=== PATIENT | male | born 1935 | race Caucasian/White ===

== ENCOUNTER 2021-02-25 18:47 | Emergency (ER) | payer MEDICARE ==
[~2021-02-25] VITALS: Ht 180.3 cm; Wt 89.2 kg
--- NOTE | 2021-02-25 19:27 | NUR ---
ERP AT BEDSIDE FOR EVAL AND BLADDER SCAN AT THIS TIME
[2021-02-25 19:53] LABS: BASOPHILS % (AUTO) 1 % (0-1); EOSINOPHILS % (AUTO) 2 % (1-7); LYMPHOCYTES % (AUTO) 8 % (22-44); MONOCYTES % (AUTO) 9 % (2-9); NEUTROPHILS % (AUTO) 81 % (42-75); PLATELET COUNT 131 x10^3/uL (130-400); RED BLOOD COUNT 3.43 x10^6/uL (4.38-5.82); RED CELL DISTRIBUTION WIDTH 16.4 % (9.4-14.8)
[2021-02-25 19:57] LABS: ANION GAP 6 mmol/L (5-15); CALCIUM 8.6 mg/dL (8.5-10.1); CHLORIDE 96 mmol/L (98-107); CREATININE 2.39 mg/dL (0.7-1.3)
--- NOTE | 2021-02-25 19:58 | NUR ---
PT'S BLOOD DRAWN, UNABLE TO URINATE AT THIS TIME. BLADDER SCAN SHOWED VERY LITTLE URINE, PER ERP. PT HAD BOWEL MOVEMENT ALL OVER HIMSELF, CLEANED UP AND WILL BE PROVIDED NEW PANTS
[2021-02-25 20:20] VITALS: BP 109/54
== END 2021-02-25 21:06 | disposition home or self-care (01) ==
LOC: ED 19:20
DX: E87.1 Hypo-osmolality and hyponatremia (principal); R33.9 Retention of urine, unspecified; R31.9 Hematuria, unspecified; I10 Essential (primary) hypertension
CPT/HCPCS: 36415; 80048; 85025; 99283